=== PATIENT | female | born 1985 | race Two or more races ===

== ENCOUNTER 2018-05-22 08:15 | Outpatient (CLI) | payer OTHER ==
[~2018-05-22 08:15] MED LIST: KETO10TA2 PO
== END 2018-05-22 08:24 | disposition home or self-care (01) ==
LOC: RAD 501 08:15
DX: M54.5 Low back pain (principal)

== ENCOUNTER 2018-07-11 11:19 | Emergency (ER) | payer OTHER ==
[~2018-07-11] VITALS: Ht 170.2 cm; Wt 61.2 kg
== END 2018-07-11 19:01 | disposition home or self-care (01) ==
LOC: ER 11:19
DX: N39.0 Urinary tract infection, site not specified (principal); E86.0 Dehydration

== ENCOUNTER 2019-02-04 14:17 | Emergency (ER) | payer OTHER ==
[~2019-02-04] VITALS: Ht 170.2 cm; Wt 59.0 kg
== END 2019-02-04 19:20 | disposition home or self-care (01) ==
LOC: ER 14:17
DX: K52.89 Other specified noninfective gastroenteritis and colitis (principal); E86.0 Dehydration

== ENCOUNTER 2020-05-05 16:37 | Outpatient (CLI) | payer OTHER | END 2020-05-05 16:48 | disposition home or self-care (01) | LOC: RAD 16:37 | PROVIDERS: ATTEND Neurological Surgery | DX: M51.06 Intervertebral disc disorders with myelopathy, lumbar region (principal) ==

== ENCOUNTER 2020-05-18 16:28 | Outpatient (CLI) | payer OTHER | END 2020-05-18 16:39 | disposition home or self-care (01) | LOC: RAD 16:28 | PROVIDERS: ATTEND Neurological Surgery | DX: M62.830 Muscle spasm of back (principal); M54.2 Cervicalgia; B34.8 Other viral infections of unspecified site ==

== ENCOUNTER 2020-05-24 15:32 | Outpatient (CLI) | payer OTHER | END 2020-05-24 15:39 | disposition home or self-care (01) | LOC: RAD 15:32 | PROVIDERS: ATTEND General Practice | DX: M41.85 Other forms of scoliosis, thoracolumbar region (principal); M54.5 Low back pain ==

== ENCOUNTER → 2020-10-31 | Outpatient (CLI) | payer OTHER | END | disposition home or self-care (01) | LOC: LAB 16:48 → RAD 16:48 | PROVIDERS: ATTEND Physical Medicine & Rehabilitation | DX: M54.2 Cervicalgia (principal); M54.5 Low back pain; Q76.49 Other congenital malformations of spine, not associated with scoliosis ==

== ENCOUNTER 2022-04-09 14:45 | Outpatient (CLI) | payer OTHER | END 2022-04-09 16:45 | disposition home or self-care (01) | LOC: PRENATAL 14:45 | PROVIDERS: ATTEND Obstetrics & Gynecology Maternal & Fetal Medicine | DX: O35.0XX0 Maternal care for (suspected) central nervous system malformation in fetus, not applicable or unspecified (principal); O35.3XX0 Maternal care for (suspected) damage to fetus from viral disease in mother, not applicable or unspecified; O09.529 Supervision of elderly multigravida, unspecified trimester; Z3A.20 20 weeks gestation of pregnancy ==

== ENCOUNTER 2024-02-05 15:26 | Outpatient (CLI) | payer OTHER | END 2024-02-05 15:29 | disposition home or self-care (01) | LOC: RAD 15:26 | PROVIDERS: ATTEND Physical Medicine & Rehabilitation | DX: M54.2 Cervicalgia (principal); M25.551 Pain in right hip ==

== ENCOUNTER 2024-08-17 09:39 | Emergency (ER) | payer OTHER ==
[~2024-08-17] VITALS: Ht 170.2 cm; Wt 57.6 kg
[2024-08-17] MEDS ORDERED: ONDANSETRON HCL 2 MG/ML VIAL IV ONE (11:15)
[2024-08-17] MEDS ORDERED: 0.9 % SODIUM CHLORIDE 1,000 ML IV SCH (11:15)
[2024-08-17] MEDS ORDERED: ACETAMINOPHEN 500 MG GEL..CAP PO ONE ×2 (11:15→11:26)
[2024-08-17] MEDS ORDERED: ONDANSETRON HCL 2 MG/ML VIAL ONE (11:26)
[2024-08-17 11:56] LABS: HEMOGLOBIN 14.2 g/dL (12.0-15.00); MEAN CELL VOLUME 92.5 fL (80.00-100.00); MEAN CORPUSCULAR HEMOGLOBIN 31.9 pg (27.00-32.0); MEAN CORPUSCULAR HGB CONC 34.5 g/dl (32.0-36.0); PLATELET COUNT 244 K/uL (150-450); RED BLOOD COUNT 4.43 M/uL (4.00-6.00); RED CELL DISTRIBUTION WIDTH 12.7 % (11.5-14.5)
[2024-08-17 12:17] LABS: CALCIUM 8.7 mg/dL (8.5-10.1); CREATININE SERUM 0.65 mg/dL (0.55-1.02); GFR 102.01; POTASSIUM 3.26 mEq/L (3.5-5.1)
[2024-08-17 13:09] LABS: URINE APPEARANCE Clear; URINE BILIRRUBIN Negative (NEGATIVE); URINE BLOOD Negative; URINE COLOR Yellow; URINE GLUCOSE Negative (NEGATIVE); URINE KETONE Negative (NEGATIVE); URINE LEUKOCYTE Negative; URINE NITRATE Negative; URINE PROTEIN Negative (NEGATIVE); URINE UROBILINOGEN 0.2 E.U./dl
[2024-08-17 13:13] LABS: URINE BACTERIA 541.9 uL (0.0-1933); URINE EPITHELIAL CELLS 26.2 uL (0.0-38.8); URINE RBC 14.5 uL (0.0-20.8); URINE WBC 4.9 uL (0.0-23.2)
[2024-08-17] MEDS ORDERED: PEPCID AC20 MG PO (16:38)
[2024-08-17] MEDS ORDERED: INTESTINEX680 M1 PO (16:38)
== END 2024-08-17 17:31 | disposition home or self-care (01) ==
LOC: ER 09:41
PROVIDERS: Emergency Medicine
DX: E86.0 Dehydration (principal); Z88.0 Allergy status to penicillin

== ENCOUNTER 2024-10-20 13:03 | Outpatient (CLI) | payer OTHER ==
[~2024-10-20 13:03] MED LIST changes: +INTESTINEX680 M1 PO; +PEPCID AC20 MG PO
== END 2024-10-20 13:05 | disposition home or self-care (01) ==
LOC: RAD 13:03
PROVIDERS: ATTEND Physical Medicine & Rehabilitation
DX: M25.561 Pain in right knee (principal); M25.562 Pain in left knee

== ENCOUNTER 2025-04-17 09:52 | Outpatient (CLI) | payer OTHER | END 2025-04-17 09:59 | disposition home or self-care (01) | LOC: RAD 09:52 | DX: M25.552 Pain in left hip (principal) ==